=== PATIENT | male | born 1950 | race Caucasian/White ===

== ENCOUNTER → 2020-09-01 | Day surgery (SDC) | payer MEDICARE, OTHER ==
[~2020-09-01] MED LIST: Ketamine 200 MG/20 ML MDV ONE; Lactated Ringers 1,000 ML IV SCH; Lidocaine 2% 5 ML SDV ONE; Propofol 200 MG/20 ML SDV ONE; ePHEDrine 50 MG/ML SDV ONE; fentaNYL 100 MCG/2 ML SDV ONE
[2020-09-01 09:22] VITALS: BP 120/76; PULSE 61
--- NOTE | 2020-09-04 07:59 | OR ---
DATE OF OPERATION: 09/29/2020 PREOPERATIVE DIAGNOSIS: 1. ABDOMINAL PAIN WITH GASTROESOPHAGEAL REFLUX DISEASE. 2. HISTORY OF COLON POLYPS. POSTOPERATIVE DIAGNOSIS: 1. ABDOMINAL PAIN WITH GASTROESOPHAGEAL REFLUX DISEASE. 2. HISTORY OF COLON POLYPS. SURGEON: Eh Brewer MD PROCEDURE: 1. DIAGNOSTIC ESOPHAGOGASTRODUODENOSCOPY WITH BIOPSIES X4, CESAR. 2. FULL-LENGTH COLONOSCOPY WITH FORCEPS POLYP REMOVAL X3. ANESTHESIA: MAC. COMPLICATIONS: None. SPECIMEN: 1. Antral biopsy x3. 2. Biopsy of fundal polyp. 3. Antral CESAR. 4. Colon polyps x3, all sessile and less than 4 mm. FINDINGS: 1. Full-length diagnostic EGD. 2. Antral gastritis with multiple ulcers. 3. Adenomatous polyp, mid fundus. 4. Spontaneous GERD without esophagitis or Bailey's changes. 5. Full-length diagnostic colonoscopy. 6. Three small sessile polyps, approximately 3 mm each, see report. 7. Mild sigmoid diverticulosis. RECOMMENDATIONS: Followup colonoscopy in 5 years. We will initiate aggressive proton pump treatment for his gastritis with ulcerations. INDICATIONS: Mr. Ramesh was having ongoing issues with epigastric pain and some reflux. We elected to proceed with a diagnostic EGD. He is also due for a routine colonoscopy followup for polyps. DESCRIPTION OF PROCEDURE: The patient was prepped and draped, placed in the left lateral decubitus position. A lubricated Olympus gastroscope was inserted over a bit, advanced to cricopharyngeus area, and easily intubated in the esophagus. Esophageal lining was benign its entire course. The Z-line was crisp and sharp at 40 cm. Spontaneous reflux was seen, but there was no distal esophagitis, stricturing, ulceration, or Bailey's changes. The scope was advanced into the stomach, through the pylorus, and into the second portion of the duodenum. This and the duodenal bulb were unremarkable. The scope was brought back into the stomach and retroflexed. The upper fundus and cardia were unremarkable. Upon straightening, there was a small adenomatous polyp in the fundus, removed in its entirety with forceps. The mid to distal antrum was markedly inflamed with diffuse gastritis and there were multiple small ulcers and one larger one. Press Setter biopsies x3 were done. CLOtest was obtained as well. Air was then suctioned and scope removed without complication. A lubricated Olympus colonoscope was then inserted and easily advanced to the cecum. Direct visualization of the ileocecal valve and appendiceal orifice was accomplished. The bowel prep was excellent. Upon withdrawal of the scope, the cecal pouch appeared benign. In the proximal ascending colon, the patient had a small sessile polyp, approximately 3 mm, removed in its entirety with forceps. The rest of the ascending and transverse colon were unremarkable. The patient did have two polyps in the splenic flexure region, one small, approximately 2 to 3 mm, the other maybe 3 or 4, both removed with forceps in their entirety and without complication. The rest of the descending colon was unremarkable. The patient had no further left-sided colon polyps, masses, ulceration, or bleeding sites. He does have some scattered diverticula, very mild in severity. The rectal vault was benign. Retroflexion of scope showed no perianal lesions. Air was suctioned, scope removed without complication. ARNOLD/SETH /[id number]
== END ==
LOC: CC.SDS 07:11
PROVIDERS: ATTEND Family Medicine
DX: Z12.11 Encounter for screening for malignant neoplasm of colon (principal); D12.2 Benign neoplasm of ascending colon; D12.3 Benign neoplasm of transverse colon; K29.50 Unspecified chronic gastritis without bleeding; K21.9 Gastro-esophageal reflux disease without esophagitis; K25.9 Gastric ulcer, unspecified as acute or chronic, without hemorrhage or perforation; K57.30 Diverticulosis of large intestine without perforation or abscess without bleeding; K31.89 Other diseases of stomach and duodenum; K31.7 Polyp of stomach and duodenum; N40.0 Benign prostatic hyperplasia without lower urinary tract symptoms; I25.10 Atherosclerotic heart disease of native coronary artery without angina pectoris; I10 Essential (primary) hypertension; E78.00 Pure hypercholesterolemia, unspecified; G47.33 Obstructive sleep apnea (adult) (pediatric); N43.3 Hydrocele, unspecified; Z86.010 Personal history of colon polyps; Z79.82 Long term (current) use of aspirin; Z79.899 Other long term (current) drug therapy; Z98.890 Other specified postprocedural states
CPT/HCPCS: 00813; 43239; 45380; 87081; 88305; 88342; J2704; J3010; J7120

== ENCOUNTER 2021-07-19 10:53 | Emergency (ER) | payer MEDICARE, OTHER ==
[2021-07-19] MEDS: Aspirin 81 MG Tab.Chew PO ONE (11:04)
[2021-07-19 11:18] VITALS: BP 149/83; PULSE 55
[2021-07-19] MEDS: Alum Hydrox/Mag Hydrox/Simeth 30 ML, Lidocaine 2% 15 ML PO STA ×2 (12:03)
== END 2021-07-19 11:56 | disposition home or self-care (01) ==
LOC: CC.ED 10:53
DX: R07.89 Other chest pain (principal); I25.10 Atherosclerotic heart disease of native coronary artery without angina pectoris; Z79.82 Long term (current) use of aspirin; Z95.5 Presence of coronary angioplasty implant and graft; Z79.899 Other long term (current) drug therapy
CPT/HCPCS: 36415; 71046; 80053; 82150; 83690; 83735; 83880; 84484; 85025; 93005; 99285-25; A9270-GY

== ENCOUNTER 2024-06-17 13:35 | Emergency (ER) | payer MEDICARE, OTHER ==
[2024-06-17 14:12] LABS: BASOPHILS ABSOLUTE AUTO 0.03 10^3/uL (0.00-0.50); BASOPHILS PERCENT AUTO 0.5 % (0-1); EOSINOPHILS ABSOLUTE AUTO 0.09 10^3/uL (0.00-1.50); EOSINOPHILS PERCENT AUTO 1.5 % (0-6); HEMATOCRIT 36.9 % (42.0-52.0); HEMOGLOBIN 12.9 g/dL (14.0-18.0); IMMATURE GRAN ABSOLUTE AUTO 0.01 10^3/uL (0.00-0.49); IMMATURE GRAN PERCENT AUTO 0.2 % (0.0-4.9); LYMPHOCYTES ABSOLUTE AUTO 1.18 10^3/uL (0.60-5.00); LYMPHOCYTES PERCENT AUTO 19.1 % (24-44); MEAN CORPUSCULAR HEMOGLOBIN 30.2 pg (27.0-32.0); MEAN CORPUSCULAR VOLUME 86.4 fL (83.0-97.0); MONOCYTES ABSOLUTE AUTO 0.68 10^3/uL (0.00-1.50); NEUTROPHILS PERCENT AUTO 67.7 % (41-71); PLATELET COUNT,PLT 113 10^3/uL (150-400); RED BLOOD CELL COUNT 4.27 x10^6/uL (4.50-6.00); WHITE BLOOD CELL COUNT,WBC 6.2 10^3/uL (4.0-11.0)
[2024-06-17 14:20] VITALS: BP 132/79; PULSE 91
[2024-06-17 14:25] LABS: ALBUMIN 3.6 g/dL (3.4-5.0); BILIRUBIN TOTAL 0.9 mg/dL (0.0-1.0); C-REACTIVE PROTEIN 6.22 mg/dL (<=0.50); CALCIUM 8.9 mg/dL (8.4-10.1); CREATININE 1.1 mg/dL (0.7-1.3); EST CRCL DRUG DOSING (CG) 53.17 mL/min; POTASSIUM,K 3.8 mEq/L (3.5-5.0)
[2024-06-17 14:25] LABS: APPEARANCE,URINE CLEAR (CLEAR); BILIRUBIN,URINE NEGATIVE (NEGATIVE); COLOR,URINE YELLOW (YELLOW); GLUCOSE,URINE NEGATIVE (NEGATIVE); KETONES,URINE NEGATIVE (NEGATIVE); LEUKOCYTE ESTERASE,URINE NEGATIVE (NEGATIVE); NITRITE,URINE NEGATIVE (NEGATIVE); OCCULT BLOOD,URINE NEGATIVE (NEGATIVE); PROTEIN,URINE NEGATIVE (NEGATIVE); UROBILINOGEN,URINE 0.2 EU/dL (0.2-1.0)
[2024-06-17] MEDS: cefTRIAXone 1 GM, Lidocaine 1% 2.1 ML IM SCH (15:47)
== END 2024-06-17 16:05 | disposition home or self-care (01) ==
LOC: CC.ED 13:35
DX: J18.9 Pneumonia, unspecified organism (principal); I25.10 Atherosclerotic heart disease of native coronary artery without angina pectoris; Z79.899 Other long term (current) drug therapy; Z79.82 Long term (current) use of aspirin
CPT/HCPCS: 36415; 71046; 80053; 81003; 85025; 86140; 87428-QW; 96372; 99283; J0696; J3490

== ENCOUNTER 2024-08-07 13:57 | Emergency (ER) | payer MEDICARE ==
[2024-08-07 14:20] VITALS: PULSE 98
[2024-08-07 14:57] VITALS: BP 124/96
[2024-08-07 15:05] LABS: CORONAVIRUS COVID-19 NAA NEGATIVE (NEGATIVE); INFLUENZA A NAA POSITIVE (NEGATIVE); INFLUENZA B NAA NEGATIVE (NEGATIVE); RESPIRATORY SYNCYTIAL VIR NAA NEGATIVE (NEGATIVE)
== END 2024-08-07 15:35 | disposition home or self-care (01) ==
LOC: CC.ED 13:57
DX: J10.1 Influenza due to other identified influenza virus with other respiratory manifestations (principal); I25.10 Atherosclerotic heart disease of native coronary artery without angina pectoris; Z79.82 Long term (current) use of aspirin; Z79.899 Other long term (current) drug therapy; Z95.5 Presence of coronary angioplasty implant and graft
CPT/HCPCS: 0241U; 87428-QW; 99283

== ENCOUNTER 2025-06-19 10:00 | Emergency (ER) | payer MEDICARE ==
[2025-06-19 10:29] LABS: BASOPHILS ABSOLUTE AUTO 0.03 10^3/uL (0.00-0.50); BASOPHILS PERCENT AUTO 0.5 % (0-1); EOSINOPHILS ABSOLUTE AUTO 0.08 10^3/uL (0.00-1.50); EOSINOPHILS PERCENT AUTO 1.3 % (0-6); IMMATURE GRAN ABSOLUTE AUTO 0.01 10^3/uL (0.00-0.49); IMMATURE GRAN PERCENT AUTO 0.2 % (0.0-4.9); LYMPHOCYTES ABSOLUTE AUTO 0.98 10^3/uL (0.60-5.00); LYMPHOCYTES PERCENT AUTO 15.5 % (24-44); MONOCYTES ABSOLUTE AUTO 0.38 10^3/uL (0.00-1.50); MONOCYTES PERCENT AUTO 6.0 % (0-10); NEUTROPHILS ABSOLUTE AUTO 4.86 x10^3/uL (1.80-8.00); NEUTROPHILS PERCENT AUTO 76.5 % (41-71); PLATELET COUNT,PLT 163 10^3/uL (150-400); RED BLOOD CELL COUNT 5.26 x10^6/uL (4.50-6.00); WHITE BLOOD CELL COUNT,WBC 6.3 10^3/uL (4.0-11.0)
[2025-06-19 10:44] LABS: ALANINE AMINOTRANSFERASE,ALT 74 U/L (12-78); ASPARTATE AMNIOTRANSFERASE,AST 44 U/L (15-37); BILIRUBIN TOTAL 1.1 mg/dL (0.0-1.0); BLOOD UREA NITROGEN,BUN 15 mg/dL (7-18); CARBON DIOXIDE,CO2 30 mmol/L (21-32); CHLORIDE,CL 101 mEq/L (98-106); CREATININE 1.2 mg/dL (0.7-1.3); ESTIMATED GFR 63 mL/min (>=60); GLUCOSE RANDOM 135 mg/dL (75-99); POTASSIUM,K 4.6 mEq/L (3.5-5.0); PRO B-TYPE NATRIUR PEPT,BNPPRO 91 pg/mL (0-1000); PROTEIN TOTAL,TP 7.5 g/dL (6.4-8.2); SODIUM,NA 139 mEq/L (136-145)
[2025-06-19 11:32] VITALS: PULSE 57
[2025-06-19 12:32] VITALS: BP 110/67
== END 2025-06-19 11:45 | disposition home or self-care (01) ==
LOC: CC.ED 10:00
DX: K21.9 Gastro-esophageal reflux disease without esophagitis (principal); R06.02 Shortness of breath; I25.10 Atherosclerotic heart disease of native coronary artery without angina pectoris; Z79.82 Long term (current) use of aspirin; Z79.899 Other long term (current) drug therapy; Z95.5 Presence of coronary angioplasty implant and graft
CPT/HCPCS: 36415; 71046; 80053; 83735; 83880; 84484; 85025; 85379; 86140; 93005; 93010; 99284; 99285